=== PATIENT | female | born 1990 | race Caucasian/White ===

== ENCOUNTER 2017-09-04 11:17 | Emergency (ER) | payer OTHER ==
[2017-09-04] MEDS ORDERED: ONDANSETRON 4 MG TAB.RAPDIS PO ONE (11:55)
[2017-09-04] MEDS ORDERED: MORPHINE SULFATE 10 MG/ML INJ IM ONE (11:55)
--- NOTE | 2017-09-04 11:58 | ER Document Report ---
ED Medical Screen (RME) - General Chief Complaint: Abdominal Pain Stated Complaint: ABDOMINAL PAIN Time Seen by Provider: 09/04/17 11:51 Notes: 27-year-old female here with complaints of left lower quadrant abdominal pain that started earlier this morning. Pain has been constant. She has had some associated nausea but no vomiting or diarrhea or vaginal bleeding/discharge. She has a history of endometriosis and has several flares monthly but this does not feel like her endometriosis acting up. She also has a history of ovarian cysts in the past. No dysuria hematuria frequency hesitancy fevers. EXAM Moderate left lower quadrant and suprapubic tenderness to palpation TRAVEL OUTSIDE OF THE [place] IN LAST 30 DAYS: No - Related Data Allergies/Adverse Reactions: lorazepam [From Ativan] Allergy (Verified 09/04/17 11:17) Home Medications: Current Home Medications Atomoxetine HCl [Strattera 10 mg Capsule] 10 mg PO BID 09/04/17 [History] Eszopiclone [Lunesta] 3 mg PO DAILY 09/04/17 [History] Fluoxetine HCl [Prozac 20 mg Capsule] 20 mg PO DAILY 09/04/17 [History] Trazodone HCl 100 mg PO DAILY 09/04/17 [History] Past Medical History - Social History Chew tobacco use (# tins/day): No Frequency of alcohol use: None Drug Abuse: None Renal/ Medical History: Denies: Hx Peritoneal Dialysis Physical Exam - Vital signs Vitals: Temp Pulse Resp BP Pulse Ox 98.3 F 77 18 105/62 100 09/04/17 11:33 09/04/17 11:33 09/04/17 11:33 09/04/17 11:33 09/04/17 11:33 Course - Vital Signs Vital signs: Temp Pulse Resp BP Pulse Ox 98.3 F 77 18 105/62 100 09/04/17 11:33 09/04/17 11:33 09/04/17 11:33 09/04/17 11:33 09/04/17 11:33
[2017-09-04 12:52] LABS: ABSOLUTE BASOPHILS # (AUTO) 0.1 10^3/uL (0.0-0.2); ABSOLUTE LYMPHOCYTES (AUTO) 1.9 10^3/uL (0.5-4.7); ABSOLUTE MONOCYTES (AUTO) 0.4 10^3/uL (0.1-1.4); ABSOLUTE NEUT (AUTO) 5.1 10^3/uL (1.7-8.2); BASOPHILS % (AUTO) 0.7 % (0-2); EOSINOPHILS % (AUTO) 0.6 % (0-6); HEMATOCRIT 36.1 % (36.0-47.0); HEMOGLOBIN 12.3 g/dL (12.0-15.5); LYMPHOCYTES % (AUTO) 24.9 % (13-45); MEAN CORPUSCULAR HEMOGLOBIN 31.6 pg (27.0-33.4); MEAN CORPUSCULAR VOLUME 93 fl (80-97); MONOCYTES % (AUTO) 5.8 % (3-13); PLATELET COUNT 193 10^3/uL (150-450); RED BLOOD COUNT 3.89 10^6/uL (3.72-5.28); RED CELL DISTRIBUTION WIDTH 12.5 % (11.5-14.0); TOTAL CELLS COUNTED % (AUTO) 100 %; WHITE BLOOD COUNT 7.5 10^3/uL (4.0-10.5)
[2017-09-04 13:18] LABS: ANION GAP 9 (5-19); BLOOD UREA NITROGEN 10 mg/dL (7-20); CALCIUM 9.5 mg/dL (8.4-10.2); CARBON DIOXIDE 27 mmol/L (22-30); CHLORIDE 106 mmol/L (98-107); GLUCOSE 79 mg/dL (75-110); POTASSIUM 3.9 mmol/L (3.6-5.0); SODIUM 141.6 mmol/L (137-145)
--- NOTE | 2017-09-04 13:24 | ER Document Report ---
ED GI/ - General Chief Complaint: Abdominal Pain Stated Complaint: ABDOMINAL PAIN Time Seen by Provider: 09/04/17 11:51 Mode of Arrival: Ambulatory Information source: Patient Notes: 27-year-old female presented to ED for complaint of left lower quadrant abdominal pain that started this morning. She states the pain was constant and getting worse. She states she did have some nausea but no vomiting. She denied any diarrhea or vaginal bleeding. She states she did have some vaginal discharge. She states she has a history of endometriosis and is had several flares that are do not feel like what she is feeling today. She states she has had ovarian cyst in the past but they have not felt like this either. TRAVEL OUTSIDE OF THE [place] IN LAST 30 DAYS: No - HPI Patient complains to provider of: Pelvic pain, Vaginal discharge Onset: This morning Timing/Duration: Gradual Quality of pain: Sharp, Throbbing Severity at maximum: Moderate Severity in ED: Moderate Pain Level: 4 Location: Pelvis Vaginal bleeding (Compared to normal period): None Associated symptoms: Nausea, Vaginal discharge, Other - Pelvic pain worse on the left. denies: Vomiting Exacerbated by: Movement, Walking Relieved by: Denies Similar symptoms previously: Yes Recently seen / treated by doctor: No - Related Data Allergies/Adverse Reactions: lorazepam [From Ativan] Allergy (Verified 09/04/17 11:17) Home Medications: Current Home Medications Atomoxetine HCl [Strattera 10 mg Capsule] 10 mg PO BID 09/04/17 [History] Eszopiclone [Lunesta] 3 mg PO DAILY 09/04/17 [History] Fluoxetine HCl [Prozac 20 mg Capsule] 20 mg PO DAILY 09/04/17 [History] Trazodone HCl 100 mg PO DAILY 09/04/17 [History] Past Medical History - General Information source: Patient - Social History Smoking Status: Former Smoker Cigarette use (# per day): No Chew tobacco use (# tins/day): No Smoking Education Provided: No Frequency of alcohol use: None Drug Abuse: None Lives with: Family Family History: Reviewed & Not Pertinent Patient has suicidal ideation: No Patient has homicidal ideation: No - Past Medical History Cardiac Medical History: Reports: None Pulmonary Medical History: Reports: None EENT Medical History: Reports: None Neurological Medical History: Reports: None Endocrine Medical History: Reports: None Renal/ Medical History: Reports: Hx Ovarian Cysts, Other - Endometriosis Malignancy Medical History: Reports: None GI Medical History: Reports: Hx Gastritis, Hx Gastroesophageal Reflux Disease, Hx Ulcer, Hx Endoscopy Skin Medical History: Reports None Psychiatric Medical History: Reports: Hx Anxiety, Hx Depression Traumatic Medical History: Reports: None Infectious Medical History: Reports: None Past Surgical History: Reports: Hx Gynecologic Surgery - Laparoscopy Review of Systems - Review of Systems Constitutional: No symptoms reported EENT: No symptoms reported Cardiovascular: No symptoms reported Respiratory: No symptoms reported Gastrointestinal: No symptoms reported Genitourinary: No symptoms reported Female Genitourinary: Vaginal discharge, Other - Pelvic pain. denies: Musculoskeletal: No symptoms reported Skin: No symptoms reported Hematologic/Lymphatic: No symptoms reported Neurological/Psychological: No symptoms reported -: Yes All other systems reviewed and negative Physical Exam - Vital signs Vitals: Temp Pulse Resp BP Pulse Ox 98.3 F 77 18 105/62 100 09/04/17 11:33 09/04/17 11:33 09/04/17 11:33 09/04/17 11:33 09/04/17 11:33 Interpretation: Normal - General General appearance: Appears well, Alert - HEENT Head: Normocephalic, Atraumatic Eyes: Normal Pupils: PERRL - Respiratory Respiratory status: No respiratory distress Chest status: Nontender Breath sounds: Normal Chest palpation: Normal - Cardiovascular Rhythm: Regular Heart sounds: Normal auscultation Murmur: No - Abdominal Inspection: Normal Distension: No distension Bowel sounds: Normal Tenderness: Tender - Left lower abdominal pain Organomegaly: No organomegaly - Genitourinary External exam: Normal Speculum exam: Cervix closed, Vaginal discharge Vaginal bleeding: None Bimanuel exam: Cervical motion tender, Adnexal tenderness - Left - Back Back: Normal, Nontender - Extremities General upper extremity: Normal inspection, Nontender, Normal color, Normal ROM , Normal temperature General lower extremity: Normal inspection, Nontender, Normal color, Normal ROM , Normal temperature, Normal weight bearing. No: Rosa Maria's sign - Neurological Neuro grossly intact: Yes Cognition: Normal Orientation: AAOx4 Asher Coma Scale Eye Opening: Spontaneous [place] Coma Scale Verbal: Oriented [place] Coma Scale Motor: Obeys Commands Asher Coma Scale Total: 15 Speech: Normal Motor strength normal: LUE, RUE, LLE, RLE Sensory: Normal - Psychological Associated symptoms: Normal affect, Normal mood - Skin Skin Temperature: Warm Skin Moisture: Dry Skin Color: Normal Course - Re-evaluation Re-evalutation: 09/04/17 15:21 Ultrasound labs discussed with patient and written report given to patient. These results were also discussed with Dr. Orosco from [facility] and he stated that the patient would just need pain medicine ibuprofen and follow-up with her OB/ [facility]. I reviewed labs and ultrasound with Dr. Orosco. A copy of the ultrasound report and a CD of the actual ultrasound were given to the patient to follow-up with her doctor since [place] [facility] [place] When patient was being discharged she requested a prescription for Diflucan as she often gets yeast infections from antibiotics. Prescription was written and given to her. - Vital Signs Vital signs: Temp Pulse Resp BP Pulse Ox 98.0 F 68 18 104/68 98 09/04/17 15:44 09/04/17 15:44 09/04/17 15:44 09/04/17 15:44 09/04/17 15:44 - Laboratory Result Diagrams: 09/04/17 12:34 09/04/17 12:34 - Diagnostic Test Radiology reviewed: Image reviewed, Reports reviewed Discharge - Discharge Clinical Impression: Pelvic pain Ovarian cyst Qualifiers: Laterality: bilateral Qualified Code(s): N83.201 - Unspecified ovarian cyst, right side Condition: Stable Disposition: HOME, SELF-CARE Additional Instructions: Ovarian Cyst Your examination shows the presence of an ovarian cyst. This is a ball of fluid attached to the ovary. Ovarian cysts in women of child-bearing age are usually innocent. However, the cyst may cause pain when it grows or bursts. An innocent ovarian cyst will usually go away by itself. When the cyst becomes painful, you should rest. Pain medication may be required. Some women find a hot water bottle soothing. The pain usually resolves within one or two days. After menopause, an ovarian cyst may mean a tumor, and requires more aggressive evaluation -- usually surgery is recommended to remove or biopsy the cyst. A very large cyst requires evaluation at any age. Most cysts (even the innocent ones) require follow-up examination. Call the doctor or return at any time if the pain increases significantly, if you become faint, or if you experience vaginal bleeding. PELVIC PAIN: There are many causes of pain in the pelvic area. The cause could be the tubes, ovaries, uterus, intestines, appendix, pelvic muscles and connective tissue, or the urinary tract. The cause of your pelvic pain is not clear. However, it seems safe to treat you outside the hospital. If the pain sounds like a temporary problem, we sometimes wait to see if it goes away. Other patients may need additional tests, such as pelvic ultrasound or cultures. Conditions may change. Call us or come back for reexamination if any problems occur, such as: (1) Pain that becomes more severe, steady, or becomes concentrated in one specific area. Also, pain that is more severe with movement or coughing. (2) Vomiting that persists or becomes more frequent. (3) Blood in the vomitus, urine, or bowel movements. Blood in the stool may have a tarry or black appearance. (4) Shaking chills or fever greater than 100 degrees. (5) The abdomen becomes more distended or swollen. (6) Bowel movements cease. (7) Heavy vaginal bleeding. PAIN MEDICATION INJECTION: You have received an injection of a pain medication. You should experience significant pain relief within 45 minutes. This drug is a narcotic - - it will impair your judgement, slow your reaction time and make you sleepy ( as well as relieve your pain). Narcotics also can cause nausea. You should not drive, work with machinery, or perform any task requiring mental alertness until all effects of the medication are gone -- six to eight hours. Do not take any alcohol, or sedatives, and do not take any other medication without checking with your physician. ORAL NARCOTIC MEDICATION: You have been given a prescription for pain control. This medication is a narcotic. It's best taken with food, as nausea can result if taken on an empty stomach. Don't operate machinery or drive within six hours of taking this medication. Do not combine this medicine with alcohol, or with any medication which can cause sedation (such as cold tablets or sleeping pills) unless you get permission from the physician. Narcotics tend to cause constipation. If possible, drink plenty of fluids and eat a diet high in fiber and fruits. Please be aware that prescription narcotics also have the potential for abuse. People become addicted to these medications because of the general sense of wellbeing that they induce. This feeling along with a significant reduction in tension, anxiety, and aggression provides a stimulating seductive quality to these drugs. Once your pain is under control, we encourage you to discard your unused narcotics. Ibuprofen Ibuprofen is an excellent, safe drug for pain control. In addition, it has potent antiinflammatory effects which are beneficial, especially in the treatment of injuries, arthritis, or tendonitis. It's best to take ibuprofen with food. Persons with ulcer disease or allergy to aspirin should notify their physician of this before taking ibuprofen. Take the medication exactly as prescribed. Don't take additional doses unless instructed to do so by your doctor. If you develop wheezing, shortness of breath, hives, faintness, stomach pain, vomiting, or dark black stools, return for re-evaluation at once. FOLLOW-UP CARE: If you have been referred to a physician for follow-up care, call the physician s office for an appointment as you were instructed or within the next two days. If you experience worsening or a significant change in your symptoms, notify the physician immediately or return to the Emergency Department at any time for re-evaluation. Prescriptions: Hydrocodone/Acetaminophen [Fields 5-325 mg Tablet] 1 tab PO Q6HP PRN #14 tablet PRN Reason: Ibuprofen 600 mg PO Q6HP PRN #20 tablet PRN Reason: Fluconazole [Diflucan] 150 mg PO ONCE PRN #1 tablet PRN Reason: Metronidazole [Flagyl 500 mg Tablet] 500 mg PO BID #14 tablet Forms: Return to Work Referrals: ISABELLA DOMINGUEZ, [Primary Care Provider] - Follow up as needed
[2017-09-04 13:40] LABS: T.VAGINALIS (WET MOUNT) NO TRICHOMONAS SEEN; WBCS (WET MOUNT) 2+ WBCS SEEN; YEAST (WET MOUNT) NO YEAST SEEN
[2017-09-04 13:41] LABS: BACTERIA (WET MOUNT) 4+ BACTERIA SEEN; EPITHELIALS (WET MOUNT) 4+ EPITHELIALS SEEN; RBCS (WET MOUNT) RARE RBCS SEEN
[2017-09-04 14:06] LABS: APPEARANCE,URINE SLIGHTLY-CLOUDY; BILIRUBIN,URINE NEGATIVE (NEGATIVE); COLOR,URINE YELLOW; GLUCOSE, URINE NEGATIVE (NEGATIVE); KETONES,URINE NEGATIVE (NEGATIVE); LEUKOCYTE ESTERASE,URINE NEGATIVE (NEGATIVE); NITRITE,URINE NEGATIVE (NEGATIVE); PROTEIN,URINE NEGATIVE (NEGATIVE); UROBILINOGEN,URINE NEGATIVE mg/dL (<2.0)
--- NOTE | 2017-09-04 14:45 | RADIOLOGY REPORT (SQ) ---
EXAM DESCRIPTION: U/S NON OB PEL TV W/DOPPLER COMPLETED DATE/TIME: 09/04/2017 2:33 pm REASON FOR STUDY: LLQ abd pain; eval for torsion COMPARISON: None. TECHNIQUE: Dynamic and static grayscale images acquired of the pelvis via transvaginal approach and recorded on PACS. Additional selected color Doppler and spectral images recorded. Today's serum quantitative HCG is negative LIMITATIONS: None. FINDINGS: UTERUS: Contour normal. No mass. Uterus is 7.3 x 5.2 x 4 cm in size. Bicornuate uterus ENDOMETRIAL STRIPE: No focal or generalized thickening. No masses. Endometrium 8 mm in thickness CERVIX: 6 mm nabothian cyst RIGHT OVARY: No abnormal masses. Right ovary is 2.7 x 2.8 x 1.1 cm in size RIGHT OVARY DOPPLER: Normal arterial vascular flow without evidence for torsion. LEFT OVARY: Left ovary 3.5 x 3.4 x 2 cm in size with a complex cyst with low level internal echoes an d irregular wall, 2.6 cm in diameter. Trace left adnexal free fluid. Question ruptured left ovarian cyst. LEFT OVARY DOPPLER: Normal arterial vascular flow without evidence for torsion. FREE FLUID: Trace left adnexa and posterior cul-de-sac free fluid OTHER: No other significant finding. IMPRESSION: No ultrasound evidence of ovarian torsion Irregularly-shaped complex cyst left ovary with trace left adnexal and posterior cul-de-sac free flui d. Question to recent rupture of a left ovarian cyst Findings discussed with Silvia in the emergency room TECHNICAL DOCUMENTATION: JOB ID: [id number] [employer]- All Rights Reserved
[2017-09-04] MEDS ORDERED: CEFTRIAXONE INJ 250 MG VIAL IM ONE (14:54)
[2017-09-04] MEDS ORDERED: LIDOCAINE 1% INJ-PF (10 MG/ML) 30 ML SDV INJ ONE (14:54)
[2017-09-04] MEDS ORDERED: AZITHROMYCIN 250 MG TABLET PO ONE (14:54)
[2017-09-04] MEDS ORDERED: METRONIDAZOLE 500 MG TABLET PO ONE (14:55)
[2017-09-04 15:12] LABS: CHLAM PCR NOT DETECTED (NOT DETECT); GON PCR NOT DETECTED (NOT DETECT)
[2017-09-04] MEDS ORDERED: HYDROCODONE/ACETAMINOPHEN 5-325 MG TABLET PO ONE (15:24)
[2017-09-04 15:45] VITALS: BP 104/68
== END 2017-09-04 15:45 | disposition home or self-care (01) ==
LOC: ER 11:17
DX: R10.9 Unspecified abdominal pain (principal); R10.32 Left lower quadrant pain; R11.0 Nausea; R10.2 Pelvic and perineal pain; Z87.891 Personal history of nicotine dependence; Z79.899 Other long term (current) drug therapy
CPT/HCPCS: 99284; 96372; 36415; 87210; 84702; 85025; 80048; 81001; 87491; 87591; 76830; 93976; S0119; J3490; J2270; J0696

== ENCOUNTER 2017-09-14 17:29 | Emergency (ER) | payer OTHER ==
[2017-09-14] MEDS ORDERED: TRAMADOL HCL 50 MG TABLET PO ONE (18:27)
--- NOTE | 2017-09-14 18:28 | ER Document Report ---
ED Medical Screen (RME) - General Chief Complaint: Pelvic Pain Stated Complaint: VAGINAL DISCHARGE, PELVIC PAIN Time Seen by Provider: 09/14/17 18:25 Notes: Patient claims of vaginal discharge, yeast infection, headaches, pelvic pain, nausea and general malaise. TRAVEL OUTSIDE OF THE [place] IN LAST 30 DAYS: No - Related Data Allergies/Adverse Reactions: lorazepam [From Ativan] Allergy (Verified 09/14/17 18:20) Past Medical History - Social History Chew tobacco use (# tins/day): No Frequency of alcohol use: None Drug Abuse: None Renal/ Medical History: Reports: Hx Ovarian Cysts. Denies: Hx Peritoneal Dialysis GI Medical History: Reports: Hx Gastritis, Hx Gastroesophageal Reflux Disease, Hx Ulcer, Hx Endoscopy Psychiatric Medical History: Reports: Hx Anxiety, Hx Depression Past Surgical History: Reports: Hx Gynecologic Surgery - Laparoscopy Physical Exam - Vital signs Vitals: Temp Pulse Resp BP Pulse Ox 98.0 F 71 20 114/58 L 96 09/14/17 17:39 09/14/17 17:39 09/14/17 17:39 09/14/17 17:39 09/14/17 17:39 Course - Vital Signs Vital signs: Temp Pulse Resp BP Pulse Ox 98.0 F 71 20 114/58 L 96 09/14/17 17:39 09/14/17 17:39 09/14/17 17:39 09/14/17 17:39 09/14/17 17:39
[2017-09-14 19:42] LABS: ABSOLUTE BASOPHILS # (AUTO) 0.1 10^3/uL (0.0-0.2); ABSOLUTE LYMPHOCYTES (AUTO) 2.8 10^3/uL (0.5-4.7); ABSOLUTE MONOCYTES (AUTO) 0.4 10^3/uL (0.1-1.4); BASOPHILS % (AUTO) 0.8 % (0-2); EOSINOPHILS % (AUTO) 0.6 % (0-6); HEMATOCRIT 36.2 % (36.0-47.0); HEMOGLOBIN 12.2 g/dL (12.0-15.5); LYMPHOCYTES % (AUTO) 37.7 % (13-45); MEAN CORPUSCULAR HEMOGLOBIN 31.1 pg (27.0-33.4); MEAN CORPUSCULAR HGB CONC 33.8 g/dL (32.0-36.0); MEAN CORPUSCULAR VOLUME 92 fl (80-97); MONOCYTES % (AUTO) 5.9 % (3-13); PLATELET COUNT 195 10^3/uL (150-450); RED BLOOD COUNT 3.94 10^6/uL (3.72-5.28); RED CELL DISTRIBUTION WIDTH 12.9 % (11.5-14.0); TOTAL CELLS COUNTED % (AUTO) 100 %; WHITE BLOOD COUNT 7.3 10^3/uL (4.0-10.5)
[2017-09-14] MEDS ORDERED: NORMAL SALINE 1000 ML 1,000 ML IV ONE (20:10)
[2017-09-14] MEDS ORDERED: KETOROLAC TROMETHAMINE 60 MG/2 ML SDV IV ONE (20:10)
[2017-09-14 20:13] LABS: ALANINE AMINOTRANSFERASE 39 U/L (9-52); ALBUMIN 4.4 g/dL (3.5-5.0); ALKALINE PHOSPHATASE 34 U/L (38-126); ANION GAP 10 (5-19); ASPARTATE AMINO TRANSFERASE 33 U/L (14-36); BILIRUBIN,DIRECT 0.2 mg/dL (0.0-0.4); BILIRUBIN,TOTAL 0.5 mg/dL (0.2-1.3); BLOOD UREA NITROGEN 9 mg/dL (7-20); CALCIUM 9.6 mg/dL (8.4-10.2); CARBON DIOXIDE 26 mmol/L (22-30); CHLORIDE 101 mmol/L (98-107); GLUCOSE 76 mg/dL (75-110); POTASSIUM 3.7 mmol/L (3.6-5.0); SODIUM 137.1 mmol/L (137-145); TOTAL PROTEIN 6.9 g/dL (6.3-8.2)
[2017-09-14] MEDS ORDERED: ONDANSETRON HCL INJ/PF 4 MG/2 ML SDV IV ONE (20:20)
--- NOTE | 2017-09-14 20:23 | ER Document Report ---
ED GI/ - General Chief Complaint: Pelvic Pain Stated Complaint: VAGINAL DISCHARGE, PELVIC PAIN Time Seen by Provider: 09/14/17 18:25 Mode of Arrival: Ambulatory Information source: Patient TRAVEL OUTSIDE OF THE [place] IN LAST 30 DAYS: No - HPI Patient complains to provider of: Abdominal pain Notes: 09/14/17 20:18 Patient arrives with complaints of left lower abdominal/pelvic pain. Patient has a long history of endometriosis. She was seen and evaluated in the emergency department within the last week. At that time she had an ultrasound showing a left ovarian cyst. GC chlamydia cultures were negative at that time. She was given Rocephin and Zithromax in the emergency department. She was diagnosed with bacterial vaginosis and was sent home on metronidazole. States that she seem like she was feeling somewhat better until earlier today when she had increasing pain in the left lower quadrant radiating into the left flank. She denies any dysuria. She states her urine is darker in color. She states that she feels like she cannot urinate fully. States that her last normal menstrual period was August 16, therefore she is due to start her menses any day now. She states that she noticed some dark brown vaginal discharge today. She denies any vomiting or diarrhea. She has had nausea. She denies any fever. She denies any rash. Prior abdominal surgeries include laparoscopy. She states that she will be seen a new [employer] that specializes in endometriosis in 2 days. She denies any chest pain or shortness of breath. She denies any other complaints at this time. - Related Data Allergies/Adverse Reactions: lorazepam [From Ativan] Allergy (Verified 09/14/17 18:20) Past Medical History - Social History Smoking Status: Unknown if Ever Smoked Chew tobacco use (# tins/day): No Frequency of alcohol use: None Drug Abuse: None Family History: Reviewed & Not Pertinent Patient has suicidal ideation: No Patient has homicidal ideation: No Renal/ Medical History: Reports: Hx Ovarian Cysts. Denies: Hx Peritoneal Dialysis GI Medical History: Reports: Hx Gastritis, Hx Gastroesophageal Reflux Disease, Hx Ulcer, Hx Endoscopy Psychiatric Medical History: Reports: Hx Anxiety, Hx Depression Past Surgical History: Reports: Hx Gynecologic Surgery - Laparoscopy Review of Systems - Review of Systems -: Yes All other systems reviewed and negative Physical Exam - Vital signs Vitals: Temp Pulse Resp BP Pulse Ox 98.0 F 71 20 114/58 L 96 09/14/17 17:39 09/14/17 17:39 09/14/17 17:39 09/14/17 17:39 09/14/17 17:39 - Notes Notes: GENERAL: alert, cooperative, nontoxic, no distress. HEAD: normocephalic, atraumatic EYES: conjunctiva pink without discharge, no external redness or swelling. EARS: no external swelling, no external redness NOSE: atraumatic, no external swelling MOUTH/THROAT: mucous membranes moist and pink, posterior pharynx without erythema, swelling, exudate. No trismus or drooling. NECK: soft, supple, full range of motion, no meningismus. CHEST: no distress, lungs clear and equal throughout. No wheezing, rales, rhonchi. CARDIAC: regular rate and rhythm, no murmur, normal capillary refill, normal pulses. No peripheral edema noted. ABDOMEN: Soft. Tenderness to the left lower quadrant and left pelvis. Slight voluntary guarding with no rebound tenderness. No mass. BACK: full range of motion, patient has tenderness with touching her left flank area lightly. This seems to be muscular skeletal in nature. There is no rash noted. EXTREMITIES: full range of motion of all extremities. No redness, no swelling. NEURO: alert and oriented x 3, no focal deficits, full range of motion of all extremities. PYSCH: appropriate mood, affect. Patient is cooperative. SKIN: pink, warm, dry, no rash. : Pelvic exam was offered, the patient declines having a pelvic exam at this time since she had one within the last week. Course - Re-evaluation Re-evalutation: 09/14/17 23:06 Patient updated on current results. She is aware that she is . Ultrasound shows no intrauterine or extrauterine at this time. The patient has received pain medication is resting comfortably and feeling much better at this time. I am currently awaiting her type and screen as well as her beta hCG. Questions were answered at this time. We will continue to monitor the patient until remaining lab work returns. 09/14/17 23:43 Quantitative hCG is negative. The patient obviously had a false positive urine test. Ultrasound shows no obvious source of her pain. Due to the severity of her pain, I have reordered the CT to rule out other source of pain and would not be seen by ultrasound. I have updated the patient and her . Patient continues to complain of itching with the Dilaudid, she will be given another dose of Benadryl to help with itching. She is in no distress at this time. 09/15/17 00:53 Patient is nontoxic appearing with stable vitals. Patient has a long history of endometriosis. She was seen here within the last week had a pelvic exam with negative GC and chlamydia cultures and was placed on metronidazole for bacterial vaginosis. She was feeling somewhat better until today when she developed increasing pain in the left lower quadrant and left back. Patient initially had a positive urine test but after serum quantitative test was sent, is noted that she is actually not . She had an ultrasound for her previous visit showing a left-sided ovarian cyst, today's ultrasound shows no ovarian cyst as well as no other acute abnormalities. There is no ovarian torsion seen on the ultrasound as well. CT was ordered to rule out kidney stone or other acute process causing her pain, this was negative as well. Patient appears to have a possible urinary tract infection will be treated with Macrobid for this. She also states that she gets infections after taking antibiotics I will prescribe her a dose of Diflucan as well. Believe that her pain is most likely secondary to her endometriosis as she is soon to start her menses. It is possible that the cysts seen on her ultrasound on her previous visit could have ruptured causing an increase in pain as well. Patient will be discharged home with a small supply of pain medication. She has an appointment with an [employer] that specializes in endometriosis on Thursday , she was instructed to keep this appointment. She is instructed that she should return the emergency department if she develops increasing pain, high fever, persistent vomiting, or has any further concerns. Patient declined a pelvic exam at this time. The patient's emergency department workup and current diagnosis were explained to the patient and or family. Follow-up instructions were provided. Medications if prescribed were discussed. Instructions for when to return to the emergency department including specific worrisome symptoms were discussed with the patient and/or family. 09/15/17 00:56 - Vital Signs Vital signs: Temp Pulse Resp BP Pulse Ox 98.0 F 71 20 114/58 L 96 09/14/17 17:39 09/14/17 17:39 09/14/17 17:39 09/14/17 17:39 09/14/17 17:39 - Laboratory Result Diagrams: 09/14/17 19:25 09/14/17 19:25 Laboratory results interpreted by me: 09/14/17 09/14/17 17:37 19:25 Alkaline Phosphatase 34 L Urine Protein 100 H Urine Ketones 20 H Urine Blood LARGE H Ur Leukocyte Esterase TRACE H Urine HCG, Qual POSITIVE H - Diagnostic Test Radiology reviewed: Image reviewed, Reports reviewed - Ultrasound showing no acute abnormality per the radiologist. CT of the abdomen and pelvis without contrast showing no acute abnormality. Discharge - Discharge Clinical Impression: Pelvic pain UTI (urinary tract infection) Qualifiers: Urinary tract infection type: acute cystitis Hematuria presence: without hematuria Qualified Code(s): N30.00 - Acute cystitis without hematuria Condition: Stable Disposition: HOME, SELF-CARE Instructions: Nitrofurantoin ([facility]), [facility], Pelvic Pain ([facility]), Urinary Tract Infection ([facility]) Additional Instructions: Take medications as prescribed. Drink plenty fluids. Follow-up with your OB/ [employer] as scheduled on Thursday. Follow-up sooner for increasing pain, high fever , persistent vomiting, or any further concerns. The medication you were prescribed today may cause drowsiness. Do not drive or operate heavy machinery while taking this medication. Prescriptions: Diclofenac Sodium [Voltaren 50 Mg Tablet.] 50 mg PO BID #20 tablet. Fluconazole [Diflucan 100 Mg Tablet] 100 mg PO ONCE #1 tablet Hydrocodone/Acetaminophen [[place] 5-325 mg Tablet] 2 tab PO Q6H PRN #15 tab PRN Reason: Nitrofurantoin/Nitrofuran Mac [Macrobid 100 mg Capsule] 1 tab PO BID #20 capsule Ondansetron HCl [Zofran 4 mg Tablet] 1 - 2 tab PO Q4H PRN #10 tablet PRN Reason: Referrals: ADITI YANG MD [Primary Care Provider] - Follow up as needed
[2017-09-14 21:01] LABS: AMORPHOUS SEDIMENT,URINE TRACE /HPF; APPEARANCE,URINE CLOUDY; BILIRUBIN,URINE NEGATIVE (NEGATIVE); GLUCOSE, URINE NEGATIVE (NEGATIVE); KETONES,URINE 20 mg/dL (NEGATIVE); LEUKOCYTE ESTERASE,URINE TRACE (NEGATIVE); NITRITE,URINE NEGATIVE (NEGATIVE); PROTEIN,URINE 100 mg/dL (NEGATIVE); URINE SPECIFIC GRAVITY 1.011; UROBILINOGEN,URINE NEGATIVE mg/dL (<2.0)
[2017-09-14 21:03] LABS: COLOR,URINE AMBER
[2017-09-14] MEDS ORDERED: HYDROMORPHONE HCL INJ/PF 2 MG/ML AMPULE IV ONE (21:26)
--- NOTE | 2017-09-14 22:36 | RADIOLOGY REPORT (SQ) ---
EXAM DESCRIPTION: U/S OB TRANSVAG W/DOPPLER COMPLETED DATE/TIME: 09/14/2017 10:17 pm REASON FOR STUDY: preg, left pelvic pain COMPARISON: 09/04/2017. TECHNIQUE: Transvaginal static and realtime grayscale images acquired of the pelvis. Additional mason cted spectral and color Doppler images recorded. All images stored on PACs. BHCG: Not available. LIMITATIONS: None. FINDINGS: UTERUS: No visualized intrauterine . RIGHT ADNEXA: Normal ovary with normal vascular flow. No adnexal free fluid. No adnexal masses. LEFT ADNEXA: Normal ovary with normal vascular flow. No adnexal free fluid. No adnexal masses. FREE FLUID: None. OTHER: No other significant finding. IMPRESSION: NO VISUALIZED INTRA- OR EXTRAUTERINE . bHCG LEVEL NOT AVAILABLE FOR CORRELATION WITH US FINDINGS. ECTOPIC CANNOT BE EXCLUDED. FOLLOW-UP ULTRASOUND AND SERIAL BHCG LEVELS STRONGLY RECOMMENDED TO ACCURATELY ASSESS STATU S. TECHNICAL DOCUMENTATION: JOB ID: [id number] [employer]- All Rights Reserved
[2017-09-14] MEDS ORDERED: DIPHENHYDRAMINE HCL 50 MG/ML VIAL IV ONE ×2 (22:50→23:42)
--- NOTE | 2017-09-15 00:48 | RADIOLOGY REPORT (SQ) ---
EXAM DESCRIPTION: CT ABDOMEN AND PELVIS WITHOUT CONTRAST CLINICAL HISTORY: llq pain, left flank pain COMPARISON: None Available. TECHNIQUE: CT of the abdomen and pelvis without IV contrast. FINDINGS: Abdomen: The liver has normal size and density. No calcified gallstones. The spleen, pancreas, and adrenal glands are unremarkable. The kidneys have normal size and contour without evidence of hydronephrosis. No obstructing ureteral calculi. The aorta and IVC have normal caliber and position. No free intraperitoneal air. The stomach and duodenum have normal course. Pelvis: The uterus is not enlarged. No adnexal masses. Urinary bladder is decompressed and otherwise unremarkable. No free pelvic fluid or lymphadenopathy. No dilated loops of large or small bowel. Normal appendix. The visualized lung bases are clear. No destructive bone lesions identified. DLP: 333.41 mGy-cm IMPRESSION: 1. No acute inflammatory or obstructive abnormality identified This exam was performed according to our departmental dose-optimization program, which includes automated exposure control, adjustment of the mA and/or kV according to patient size and/or use of iterative reconstruction technique.
[2017-09-15] MEDS ORDERED: HYDROCODONE/ACETAMINOPHEN 5-325 MG TABLET PO ONE (00:53)
[2017-09-15 00:59] VITALS: BP 93/52
== END 2017-09-15 01:09 | disposition home or self-care (01) ==
LOC: ER 17:29
DX: N30.00 Acute cystitis without hematuria (principal); N80.9 Endometriosis, unspecified; R10.2 Pelvic and perineal pain; R10.32 Left lower quadrant pain; R11.0 Nausea; L29.9 Pruritus, unspecified; T40.2X5A Adverse effect of other opioids, initial encounter; Y92.238 Other place in hospital as the place of occurrence of the external cause; Z88.8 Allergy status to other drugs, medicaments and biological substances; Z87.42 Personal history of other diseases of the female genital tract; Z3A.01 Less than 8 weeks gestation of pregnancy
CPT/HCPCS: 96376; 99284; 96361; 96374; 96375; 86900; 86901; 36415; 86850; 84702; 85025; 81025; 80053; 81001; 76817; 93976; 74176; J1200; J1170; J2405; J7030